=== PATIENT | female | born 1970 | race Caucasian/White ===

== ENCOUNTER 2016-08-09 02:28 | Inpatient (IN) | payer OTHER ==
--- NOTE | ~2016-08-09 | HP ---
History And Physical [facility] [id number] [place]. [address] NAME: NEELIMA ROSAS : 72 STATUS : ADM IN PAT#: [id number] AGE: 45 ADM/REG DATE : 08/09/16 MR#: [id number] REPORT SERV DATE: 08/09/16 DICTATED BY: HEMA GUILLEN DATE: 08/09/16 REPORT STATUS : Draft TRANSCRIBED BY: MODL DATE: 08/09/16 DATE OF ADMISSION: 08/09/2016 CHIEF COMPLAINT: Chest pain, shortness of breath, lower extremity edema, and tachycardia. HISTORY OF PRESENT ILLNESS: Ms. Rosas is a 45-year-old female with a history of morbid obesity, hypertension, chronic pain, on chronic narcotics, hypothyroidism, as well as iron deficiency anemia, who presents with complaints of chest pain, shortness of breath, high heart rate, lower extremity edema, low blood counts, as well as back and leg pain. The patient states that she has had a one-to two-day history of substernal chest pain without any radiation to left arm, neck, shoulder, or back. It is associated with some shortness of breath, as well as high heart rates. It has now somewhat improved, but still present. It is worse with exertion. The patient also reports shortness of breath primarily with exertion. Denies any orthopnea, cough, sputum production, or wheezing, but does report some intermittent low-grade fevers over the past week. She has also reported some worsening lower extremity swelling. Also reports some intermittent low-grade fevers, 99 to 100 degrees Fahrenheit over the past week. The patient states that in the past, she has required multiple IV iron infusions as well as blood transfusions, but has not required any since 2010 and since then, her blood counts have been fairly stable up until March of this year when they noted with drop down hemoglobin around 11. She states that she gets tachycardic, short of breath, and chest pain every time her blood counts drop. She denies any melena, hematochezia, hemoptysis, or hematemesis. The patient has recently undergone left foot surgery and has a chronic nonhealing wound which is being managed by [facility]. The patient also reports some headaches, worsening over lower back pain, as well as some muscle spasms. Initial evaluation in the emergency department, hemoglobin 8.4, hematocrit of 29.1 with MCV of 72. EKG was sinus tachycardia with no evidence of any acute ischemia or infarction. Chest x-ray was clear. CT of the chest was limited, but with no evidence of any central PE as well as no evidence of any pneumonia or pleural effusions. The patient was subsequently admitted to the Hospitalist Service for further evaluation and management. REVIEW OF SYSTEMS: Comprehensive review of system otherwise negative unless listed in the history of present illness. History And Physical [address] [address] NAME: NEELIMA ROSAS : 72 STATUS : ADM IN PAT#: [id number] AGE: 45 ADM/REG DATE : 08/09/16 MR#: [id number] REPORT SERV DATE: 08/09/16 DICTATED BY: HEMA GUILLEN DATE: 08/09/16 REPORT STATUS : Draft TRANSCRIBED BY: BANDAR DATE: 08/09/16 PAST MEDICAL HISTORY: 1. Morbid obesity. 2. Hypertension. 3. Hiatal hernia. 4. Obstructive sleep apnea, noncompliant on CPAP therapy. 5. Osteoarthritis. 6. Chronic pain, on chronic narcotics. 7. Hypothyroidism. 8. History of iron deficiency anemia, requiring multiple IV iron infusions and blood transfusion. 9. History of pancytopenia. 10.History of pernicious anemia. 11.History of gastritis. 12.History of upper GI bleed. SURGICAL HISTORY: 1. Appendectomy. 2. Cholecystectomy. 3. Tonsillectomy and adenoidectomy. 4. Tubal ligation. 5. Bilateral foot surgeries. 6. Right knee surgery. ALLERGIES: PENICILLIN, SULFA DRUGS, LATEX AND ADHESIVE TAPE. HOME MEDICATIONS: Pending at the time of dictation. SOCIAL HISTORY: Denies any tobacco or illicits. Occasional alcohol use. She is on disability. FAMILY MEDICAL HISTORY: Mother with hypertension. Father with diabetes, heart disease, and hypertension. Siblings with hypertension. LABS AND IMAGIN. White count is 4.2, hemoglobin 8.4, hematocrit is 29.1 and platelets are 119. MCV 72. INR 1.1. 2. Sodium is 139, potassium 3.2, chloride 104, carbon dioxide 31, BUN 6, creatinine 0.82, glucose is 131, calcium is 8.7. 3. Troponin less than 0.02. 4. CTA of the chest: Limited study due to the patient's body habitus, but no evidence of any central pulmonary arterial defects, shows some mild cardiomegaly as well as hepatosplenomegaly, and a large retrocardiac hiatal hernia. 5. Chest x-ray per review shows cardiomegaly, but otherwise, no acute cardiopulmonary abnormalities. Her EKG per my review shows sinus tachycardia, heart rate of 115 with no evidence of any acute ischemia or infarction. She does have a classic S1Q3T3 pattern concerning for possible RV strain. History And Physical [address] [address] NAME: NEELIMA ROSAS : 72 STATUS : ADM IN [facility]#: [id number] AGE: 45 ADM/REG DATE : 08/09/16 MR#: [id number] REPORT SERV DATE: 08/09/16 DICTATED BY: HEMA GUILLEN DATE: 08/09/16 REPORT STATUS : Draft TRANSCRIBED BY: BANDAR DATE: 08/09/16 PHYSICAL EXAMINATION: VITAL SIGNS: Temperature is 98.0 degrees Fahrenheit, pulse is 121, respirations 18, saturating 96% on room air. Blood pressure 185/95; on recheck, blood pressure is now 145/80; pulse of 99. GENERAL: The patient is awake, alert, in no acute distress. Resting comfortably. She is a morbidly obese female. Family is at bedside. HEENT: Atraumatic and normocephalic. Moist mucous membranes. Pupils are equal, round, and reactive to light and accommodation. Extraocular movements intact. No scleral icterus. NECK: No jugular venous distention or carotid bruits. CARDIAC: Tachycardic rate, regular rhythm. No murmurs, rubs, or gallops. Normal S1, S2. LUNGS: Clear to auscultation bilaterally except for some decreased breath sounds in the bases. ABDOMEN: Obese, soft, nontender, nondistended with good bowel sounds. No rebound, guarding, or rigidity. EXTREMITIES: Warm and well perfused with no cyanosis or clubbing. She does have a trace to 1+ lower extremity edema. There is an approximately 1 cm in diameter superficial ulceration of the medial aspect of her left forefoot which base is clean, dry, and intact, appears to be well healing. SKIN: Warm and dry except for noted above. PSYCH: Affect appropriate. NEURO: Alert and oriented x3. Cranial nerves 2 through 12 grossly intact. Speech is normal. Gait not assessed. ASSESSMENT: Ms. Rosas is a 45-year-old female who presents with multiple complaints including chest pain, shortness of breath, low blood counts, and tachycardia. PROBLEM LIST: 1. Chest pain. 2. Shortness of breath and dyspnea on exertion. 3. Tachycardia. 4. Rjduh-uh-gcflzte anemia. 5. Lower extremity edema. 6. Fevers. 7. Hypokalemia. 8. Morbid obesity. 9. Chronic pain, on chronic narcotics. 10.History of pernicious anemia and iron deficiency anemia. 11.History of hypothyroidism. PLAN: 1. Chest pain. EKG and cardiac enzymes are unremarkable. CT of the chest was negative for a large central PE. We will continue to trend out cardiac enzymes as well as EKG. Given the patient's reported shortness of breath, as well as chest pain and persistent tachycardia, we will obtain a V/Q scan to rule out PE given the limited nature of the CTA of the chest. 2. Shortness of breath, dyspnea on exertion. Chest x-ray and CTA of the chest are clear History And Physical [address] [address] NAME: NEELIMA ROSAS : 72 STATUS : ADM IN PAT#: [id number] AGE: 45 ADM/REG DATE : 08/09/16 MR#: [id number] REPORT SERV DATE: 08/09/16 DICTATED BY: HEMA GUILLEN DATE: 08/09/16 REPORT STATUS : Draft TRANSCRIBED BY: MODL DATE: 08/09/16 and negative for pneumonia, volume overload, effusion, or central PE. I suspect some of this might be due to debility as well as dtrwh-gl-kbpeblk anemia. Checking BNP level as well as echocardiogram. 3. Tachycardia. CTA of the chest was negative for large or central PE, but we will check a V/Q scan to definitively rule out PE. Also, followup BNP level, echocardiogram, continue to trend out cardiac enzymes. Given tachycardia, also concern for possible underlying infection. She is afebrile, although does have some mild leukopenia. We will check a procalcitonin level, lactate, blood cultures, as well as checking urinalysis for underlying urinary tract infection. 4. Lower extremity edema. Checking BNP level, hepatic function panel, check protein status, as well as lower extremity Dopplers to rule out DVT. 5. Gxywj-jy-deowzgn anemia. Suspect some occult blood loss given her worsening MCV as well as increasing RDW. Checking occult blood as well as iron studies, folate, and B12. We will transfuse for hemoglobin less than 7. 6. Hypokalemia, repleting per protocol. 7. Fevers. The patient is afebrile here with mild leukopenia. Please refer to the above plan for workup of possible infectious etiology. 8. DVT prophylaxis. Lovenox subcu. CODE STATUS: The patient wished to be full code. JCB/MODL Hema Guillen MD / [id number] CC: Elpidio Eaton Jr, MD Michael Dant, M.D.
--- NOTE | ~2016-08-09 | DS ---
Discharge Summary [facility] [address] [place]. [address] NAME: NEELIMA ROSAS : 72 STATUS : DIS IN PAT#: [id number] AGE: 45 ADM/REG DATE : 08/09/16 MR#: [id number] REPORT SERV DATE: 08/15/16 DICTATED BY: ANN MARQUES DATE: 08/14/16 REPORT STATUS : Draft TRANSCRIBED BY: MODL DATE: 08/14/16 ADMISSION DATE: 08/09/2016 DISCHARGE DATE: 08/14/2016 DISCHARGE DIAGNOSES: 1. Chronic pancytopenia with iron-deficiency anemia with intolerance of oral iron therapy, status post one unit of blood transfusion and status post IV iron infusion. 2. BMI . 3. Recent right foot surgery. 4. Chest pain. On presentation on admission, had a negative workup of PE and coronary artery disease. HISTORY OF PRESENT ILLNESS: This is a 45-year-old female patient, who came to the hospital with complaining of chest pain and was found to be tachycardic. Please see dictated H and P. HOSPITAL COURSE: She was admitted to hospital with tachycardia, short of breath. Had evaluation for the PE and also had evaluation for ischemia of coronary artery disease. She had a negative CTA of the chest. The echocardiogram showed ejection fraction of 65% without significant valvular heart disease. V/Q scan was also negative for PE and ultrasound of the leg was negative for DVT. Her procalcitonin level was less than 0.05. Her albumin level was 2.9 interestingly. The patient had a two-day procedure of the nuclear cardiac stress test due to the body habitus. Nuclear stress test did show some soft tissue attenuation more likely related with her body status. After one unit of blood was given, the patient is not having any symptoms and even her symptoms are subsided even before the blood transfusion. She does have a history of multiple transfusion and followed by Dr. Faraz Bailey at [facility] for a while in the past. Her H and H have been noted to be slightly lower than normal in the past. Simply for symptomatic treatment, she received 1 unit of packed RBC. For the whole time of the night taking care of this patient, she has been very stable. Did not have any other symptomatic anemia issues or any evidence of bleeding either. After the cardiac stress test was done and with a negative result, the patient was decided to be discharged on 08/13/2016. However, she felt like she does need more blood transfusion for her H and H was 8.5 and hematocrit was 29.1. However, she does not have any indication for transfusion therapy. She stayed one more night. Dr. Faraz Bailey visited her and he emphasized that she does not need any blood at this moment and we already set up the outpatient followup with him at [facility] and he emphasized that outpatient followup will be more important for her and she agreed to go home today. DISCHARGE MEDICATIONS: 1. Continuing atenolol 25 mg once a day. 2. Hyzaar 100/12.5 mg once a day. 3. Percocet 10 four times a day. 4. Protonix 40 mg twice a day. Discharge Summary [address] [address] NAME: NEELIMA ROSAS : 72 STATUS : DIS IN PAT#: [id number] AGE: 45 ADM/REG DATE : 08/09/16 MR#: [id number] REPORT SERV DATE: 08/15/16 DICTATED BY: ANN MARQUES DATE: 08/14/16 REPORT STATUS : Draft TRANSCRIBED BY: BANDAR DATE: 08/14/16 5. Lyrica 50 mg three times a day. 6. Vitamin D once a day. 7. Zanaflex 4 mg three times a day. 8. I would recommend potassium 40 mEq once a day. TIME SPENT: More than 30 minutes in discharge coordination. DICTATED BY: Ann Marques M.D. EKRon/BANDAR Ann Marques M.D. / [id number] CC: Urvashi Calabrese M.D.
[~2016-08-09 02:28] MED LIST: ATEN25 PO; BP PILL PO; CLEOCIN300 MG PO; COZ50 PO; DELESTROGEN40 MG/ML IM; DENIES HOME MEDS; FLEX PO; HYZAAR1 TAB PO; IRON325 MG PO; LEVOTHROID25 MCG PO; LEVOTHYROXIN50 MCG PO; LORTAB10 PO; MULTIVIT/MIN PO; NEXIUM40 PO; NO; NORCO1 TAB PO; PHENADOZ25 MG RE; PR25 PO; PRIN10 PO; PROTONIX PO; SUCR PO
[2016-08-09 03:19] LABS: BASOPHILS 0.2 %; BASOPHILS ABSOLUTE 0.01 10/3/uL (0.0-0.16); EOSINOPHILS 1.9 %; EOSINOPHILS ABSOLUTE 0.08 10/3/uL (0.0-0.53); ER CBC TAT 0 Hrs 07 Mins; LYMPHOCYTES 23.7 %; LYMPHOCYTES ABSOLUTE 0.99 10/3/uL (0.67-4.30); MEAN PLATELET VOLUME 10.8 fL (9.2-13.0); MONOCYTES ABSOLUTE 0.25 10/3/uL (0.21-1.20); NEUTROPHILS 68.2 %; NEUTROPHILS ABSOLUTE 2.84 10/3/uL (2.02-8.40); PLATELET COUNT 119 10/3/uL (150-400); RBC DISTRIBUTION WIDTH 17.3 % (12.0-16.0); RED CELL COUNT 4.03 10/6/uL (4.0-5.6); WHITE BLOOD CELLS 4.2 10/3/uL (4.5-10.5)
[2016-08-09 03:20] LABS: HEMATOCRIT 29.1 % (36.0-48.0); HEMOGLOBIN 8.4 g/dL (12.0-16.0); MANUAL DIFF NO %; MEAN CORPUS HGB CONC 28.9 g/dL (32.0-36.0); MEAN CORPUSCULAR HEMOGLOB 20.8 pg (26.0-34.0); MEAN CORPUSCULAR VOLUME 72.2 fL (80-100)
[2016-08-09 03:25] LABS: INTERNATIONAL NORMAL RATI 1.1 UNITS (-); PARTIAL THROMBO TIME 30.5 SEC (22.5-37.2); PROTIME (NOT ORD) 13.6 SEC (12.0-14.5)
[2016-08-09 03:32] LABS: ANISOCYTOSIS 1+ (5-10/OIF) (0-5/OIF); PLATELET ESTIMATE SLT DEC (ADEQUATE)
[2016-08-09 03:33] LABS: BUN (BLOOD UREA NITROGEN) 6 MG/DL (6-23); CALCIUM, SERUM 8.7 MG/DL (8.5-10.4); CHEST PAIN PROFILE TAT 0 Hrs 21 Mins; CHLORIDE, SERUM 104 MMOL/L (96-112); CO2 (CARBON DIOXIDE) 31 MMOL/L (24-34); CREATININE 0.82 MG/DL (0.55-1.02); GFR AFRICAN AMERICAN 101 ML/MIN (>=60); GFR NON AFRICAN AMERICAN 87 ML/MIN (>=60); POLYCHROMASIA 1+ (2-5/OIF) (0-1/OIF); POTASSIUM, SERUM 3.2 MMOL/L (3.5-5.3); SODIUM, SERUM 139 MMOL/L (135-148); TROPONIN I <0.02 NG/ML (<0.05)
[2016-08-09 03:34] LABS: GLUCOSE, SERUM 171 MG/DL (60-99)
[2016-08-09] MEDS ORDERED: ZANAFLEX 4 MG TA4 MG PO (09:11)
[2016-08-09] MEDS ORDERED: LYRICA50 PO (09:11)
[2016-08-09] MEDS ORDERED: D 5000 PO (09:11)
[2016-08-09] MEDS ORDERED: PERCOCET 10/3251 TAB PO ×2 (09:13→15:09)
[2016-08-09 10:46] LABS: ALBUMIN 3.1 G/DL (3.5-5.0); ALKALINE PHOSPHATASE 94 U/L (45-117); BUN (BLOOD UREA NITROGEN) 7 MG/DL (6-23); CALCIUM, SERUM 8.6 MG/DL (8.5-10.4); CHLORIDE, SERUM 106 MMOL/L (96-112); CK-MB 0.7 NG/ML; CO2 (CARBON DIOXIDE) 31 MMOL/L (24-34); CPK 54 U/L (0-200); CREATININE 0.72 MG/DL (0.55-1.02); DIRECT BILIRUBIN < 0.1 MG/DL (0.0-0.4); FERRITIN 18 NG/ML (8-252); GFR AFRICAN AMERICAN 118 ML/MIN (>=60); GFR NON AFRICAN AMERICAN 102 ML/MIN (>=60); GLUCOSE, SERUM 93 MG/DL (60-99); INDIRECT BILIRUBIN(NOT ORDER) 0.2 MG/DL (0.1-0.9); IRON BINDING CAPACITY 295 MCG/DL (225-410); IRON, SERUM 17 MCG/DL (35-150); PHOSPHORUS, SERUM 3.7 MG/DL (2.5-4.5); POTASSIUM, SERUM 3.3 MMOL/L (3.5-5.3); SGOT(AST) 27 U/L (5-40); SGPT(ALT) 33 U/L (5-65); SODIUM, SERUM 142 MMOL/L (135-148); TOTAL BILIRUBIN 0.3 MG/DL (0-1.2); TOTAL PROTEIN 6.6 G/DL (6.0-8.5); TROPONIN I <0.02 NG/ML (<0.05)
[2016-08-09 10:47] LABS: FOLATE 6.4 NG/ML (>5.2)
[2016-08-09] MEDS ORDERED: LEVOTHYROXIN50 MCG PO (15:08)
[2016-08-09] MEDS ORDERED: ATEN25 PO (15:08)
[2016-08-09] MEDS ORDERED: PROTONIX PO (15:09)
[2016-08-09] MEDS ORDERED: BIOCLEANSE PO (15:09)
[2016-08-09] MEDS ORDERED: PROBIOTIC PO (15:09)
[2016-08-09] MEDS ORDERED: [UNRECOGNIZED DRUG - REMARK] PO (15:10)
[2016-08-09] MEDS ORDERED: HYZAAR1 TAB PO (15:11)
[2016-08-09 15:40] LABS: CPK 57 U/L (0-200); TROPONIN I <0.02 NG/ML (<0.05)
[2016-08-09 15:41] LABS: CK-MB 0.8 NG/ML
[2016-08-10 05:46] LABS: BASOPHILS 0.3 %; BASOPHILS ABSOLUTE 0.01 10/3/uL (0.0-0.16); EOSINOPHILS 4.8 %; EOSINOPHILS ABSOLUTE 0.19 10/3/uL (0.0-0.53); HEMATOCRIT 26.3 % (36.0-48.0); HEMOGLOBIN 7.5 g/dL (12.0-16.0); IMMATURE GRANULOCYTES 0.3 %; IMMATURE GRANULOCYTES ABSOLUTE 0.01 10/3/uL (0.0-0.11); LYMPHOCYTES 29.7 %; LYMPHOCYTES ABSOLUTE 1.18 10/3/uL (0.67-4.30); MEAN CORPUS HGB CONC 28.5 g/dL (32.0-36.0); MEAN CORPUSCULAR HEMOGLOB 20.9 pg (26.0-34.0); MEAN CORPUSCULAR VOLUME 73.3 fL (80-100); MEAN PLATELET VOLUME 11.1 fL (9.2-13.0); MONOCYTES 7.6 %; NEUTROPHILS 57.3 %; NEUTROPHILS ABSOLUTE 2.28 10/3/uL (2.02-8.40); PLATELET COUNT 107 10/3/uL (150-400); RBC DISTRIBUTION WIDTH 17.4 % (12.0-16.0); RED CELL COUNT 3.59 10/6/uL (4.0-5.6)
[2016-08-10 05:49] LABS: MANUAL DIFF NO %
[2016-08-10 06:14] LABS: ANISOCYTOSIS 1+ (5-10/OIF) (0-5/OIF); MICROCYTES 1+ (5-10/OIF) (0-5/OIF); PLATELET ESTIMATE SLT DEC (ADEQUATE)
[2016-08-10 06:15] LABS: POLYCHROMASIA 1+ (2-5/OIF) (0-1/OIF)
[2016-08-10 06:16] LABS: OVALOCYTES 1+ (3-10/OIF) (0-2/OIF); POIKILOCYTOSIS 1+ (5-10/OIF) (0-5/OIF)
[2016-08-11 05:34] LABS: BASOPHILS 0.2 %; BASOPHILS ABSOLUTE 0.01 10/3/uL (0.0-0.16); EOSINOPHILS 4.6 %; EOSINOPHILS ABSOLUTE 0.19 10/3/uL (0.0-0.53); HEMATOCRIT 25.8 % (36.0-48.0); HEMOGLOBIN 7.5 g/dL (12.0-16.0); IMMATURE GRANULOCYTES 0.2 %; IMMATURE GRANULOCYTES ABSOLUTE 0.01 10/3/uL (0.0-0.11); LYMPHOCYTES 24.9 %; LYMPHOCYTES ABSOLUTE 1.04 10/3/uL (0.67-4.30); MEAN CORPUS HGB CONC 29.1 g/dL (32.0-36.0); MEAN CORPUSCULAR HEMOGLOB 21.1 pg (26.0-34.0); MEAN CORPUSCULAR VOLUME 72.7 fL (80-100); MONOCYTES 8.2 %; MONOCYTES ABSOLUTE 0.34 10/3/uL (0.21-1.20); NEUTROPHILS 61.9 %; NEUTROPHILS ABSOLUTE 2.58 10/3/uL (2.02-8.40); PLATELET COUNT 107 10/3/uL (150-400); RBC DISTRIBUTION WIDTH 17.7 % (12.0-16.0); RED CELL COUNT 3.55 10/6/uL (4.0-5.6); WHITE BLOOD CELLS 4.2 10/3/uL (4.5-10.5)
[2016-08-11 05:39] LABS: MANUAL DIFF NO %
[2016-08-11 05:51] LABS: A/G RATIO 0.8 (0.7-1.9); ALBUMIN 2.9 G/DL (3.5-5.0); ALKALINE PHOSPHATASE 88 U/L (45-117); BUN (BLOOD UREA NITROGEN) 8 MG/DL (6-23); CALCIUM, SERUM 8.8 MG/DL (8.5-10.4); CHLORIDE, SERUM 103 MMOL/L (96-112); CO2 (CARBON DIOXIDE) 29 MMOL/L (24-34); CREATININE 0.78 MG/DL (0.55-1.02); GFR AFRICAN AMERICAN 107 ML/MIN (>=60); GFR NON AFRICAN AMERICAN 92 ML/MIN (>=60); GLOBULIN 3.7 G/DL (2.5-4.1); GLUCOSE, SERUM 110 MG/DL (60-99); POTASSIUM, SERUM 3.7 MMOL/L (3.5-5.3); SGOT(AST) 31 U/L (5-40); SGPT(ALT) 40 U/L (5-65); SODIUM, SERUM 136 MMOL/L (135-148); TOTAL BILIRUBIN 0.3 MG/DL (0-1.2); TOTAL PROTEIN 6.6 G/DL (6.0-8.5)
[2016-08-11 06:05] LABS: ANISOCYTOSIS 1+ (5-10/OIF) (0-5/OIF); HYPOCHROMIA 1+ (3-10/OIF) (0-2/OIF); PLATELET ESTIMATE SLT DEC (ADEQUATE)
[2016-08-11 06:06] LABS: POLYCHROMASIA 1+ (2-5/OIF) (0-1/OIF)
[2016-08-11 06:18] LABS: T PROTEIN (ELECT)(NOT OR 6.1 G/DL (6.0-8.5)
[2016-08-11 10:51] LABS: A/G 1.27 RATIO (0.9-2.10); ALBUMIN (ELECTRO) 3.42 GM/DL (3.2-5.5); ALPHA 1 (ELECTRO) 0.23 GM/DL (0.1-0.4); ALPHA 1 RELAT % (NOT ORD) 3.8 % (1.0-4.0); ALPHA 2 (ELECTRO) 0.65 GM/DL (0.5-1.10); ALPHA 2 RELAT % 10.7 % (4.5-26.0); BETA GLOBULIN (SPE) 0.69 GM/DL (0.60-1.30); BETA RELATIVE % 11.3 % (9.0-22.0); GAMMA GLOBULIN (SPE) 1.11 G/DL (0.70-1.60); GAMMA RELAT % 18.2 % (6.0-22.0)
[2016-08-11 11:40] LABS: RETICULOCYTE COUNT 2.1 % (0.5-2.5)
[2016-08-12 05:44] LABS: BASOPHILS 0.2 %; BASOPHILS ABSOLUTE 0.01 10/3/uL (0.0-0.16); EOSINOPHILS 3.4 %; EOSINOPHILS ABSOLUTE 0.15 10/3/uL (0.0-0.53); HEMATOCRIT 28.4 % (36.0-48.0); HEMOGLOBIN 8.4 g/dL (12.0-16.0); IMMATURE GRANULOCYTES 0.7 %; IMMATURE GRANULOCYTES ABSOLUTE 0.03 10/3/uL (0.0-0.11); LYMPHOCYTES 24.2 %; LYMPHOCYTES ABSOLUTE 1.08 10/3/uL (0.67-4.30); MANUAL DIFF NO %; MEAN CORPUS HGB CONC 29.6 g/dL (32.0-36.0); MEAN CORPUSCULAR HEMOGLOB 21.7 pg (26.0-34.0); MEAN CORPUSCULAR VOLUME 73.4 fL (80-100); MONOCYTES 9.2 %; MONOCYTES ABSOLUTE 0.41 10/3/uL (0.21-1.20); NEUTROPHILS 62.3 %; NEUTROPHILS ABSOLUTE 2.78 10/3/uL (2.02-8.40); PLATELET COUNT 122 10/3/uL (150-400); RBC DISTRIBUTION WIDTH 18.1 % (12.0-16.0); RED CELL COUNT 3.87 10/6/uL (4.0-5.6); WHITE BLOOD CELLS 4.5 10/3/uL (4.5-10.5)
[2016-08-12 05:58] LABS: BUN (BLOOD UREA NITROGEN) 8 MG/DL (6-23); CALCIUM, SERUM 9.1 MG/DL (8.5-10.4); CHLORIDE, SERUM 101 MMOL/L (96-112); CREATININE 0.77 MG/DL (0.55-1.02); GFR AFRICAN AMERICAN 109 ML/MIN (>=60); GFR NON AFRICAN AMERICAN 94 ML/MIN (>=60); GLUCOSE, SERUM 99 MG/DL (60-99); POTASSIUM, SERUM 3.8 MMOL/L (3.5-5.3); SODIUM, SERUM 135 MMOL/L (135-148)
[2016-08-12 06:01] LABS: CO2 (CARBON DIOXIDE) 34 MMOL/L (24-34)
[2016-08-12 06:08] LABS: ANISOCYTOSIS 1+ (5-10/OIF) (0-5/OIF); ELLIPTOCYTES 1+ (3-10/OIF) (0-2/OIF); MICROCYTES 1+ (5-10/OIF) (0-5/OIF); PLATELET ESTIMATE SLT DEC (ADEQUATE)
[2016-08-13 05:02] LABS: BASOPHILS 0.2 %; BASOPHILS ABSOLUTE 0.01 10/3/uL (0.0-0.16); EOSINOPHILS 2.7 %; EOSINOPHILS ABSOLUTE 0.11 10/3/uL (0.0-0.53); HEMATOCRIT 29.1 % (36.0-48.0); HEMOGLOBIN 8.5 g/dL (12.0-16.0); IMMATURE GRANULOCYTES ABSOLUTE 0.04 10/3/uL (0.0-0.11); LYMPHOCYTES 24.9 %; MEAN CORPUS HGB CONC 29.2 g/dL (32.0-36.0); MEAN CORPUSCULAR HEMOGLOB 21.9 pg (26.0-34.0); MEAN CORPUSCULAR VOLUME 74.8 fL (80-100); MONOCYTES 10.2 %; MONOCYTES ABSOLUTE 0.41 10/3/uL (0.21-1.20); NEUTROPHILS ABSOLUTE 2.44 10/3/uL (2.02-8.40); PLATELET COUNT 112 10/3/uL (150-400); RBC DISTRIBUTION WIDTH 18.4 % (12.0-16.0); RED CELL COUNT 3.89 10/6/uL (4.0-5.6)
[2016-08-13 05:04] LABS: MANUAL DIFF NO %
[2016-08-13 05:27] LABS: ANISOCYTOSIS 1+ (5-10/OIF) (0-5/OIF); PLATELET ESTIMATE SLT DEC (ADEQUATE)
[2016-08-13 05:28] LABS: MICROCYTES 1+ (5-10/OIF) (0-5/OIF); RBC MORPHOLOGY ABN (NORMAL)
[2016-08-14] MEDS ORDERED: KLOR-CON M2020 MEQ PO (10:11)
== END 2016-08-14 12:22 | disposition home or self-care (01) | DRG 812 ==
LOC: ER 02:28 → 5NO 07:21
PROVIDERS: Internal Medicine; Nurse Practitioner
PROC: 30233N1 Transfusion of Nonautologous Red Blood Cells into Peripheral Vein, Percutaneous Approach (ICD-10-PCS; principal; 2016-08-11)
DX: D50.9 Iron deficiency anemia, unspecified (principal); D61.818 Other pancytopenia; Z68.43 Body mass index [BMI] 50.0-59.9, adult; R07.9 Chest pain, unspecified; E66.01 Morbid (severe) obesity due to excess calories; R06.02 Shortness of breath; E87.6 Hypokalemia; G89.4 Chronic pain syndrome; Z79.891 Long term (current) use of opiate analgesic
CPT/HCPCS: 36415; 71010; 71275; 78452; 78582; 80048; 80053; 80076; 82550; 82553; 82607; 82728; 82746; 83540; 83550; 83605; 83735; 83880; 84100; 84145; 84155; 84165; 84439; 84443; 84484; 85025; 85045; 85610; 85730; 86850; 86900; 86901; 86920; 87040; 93005; 93017; 93970; 96374; 96375; 99285; A9270-GY; A9502; A9540; A9567; C8929; J0153; J1200; J2405; J2916; P9016; Q9957; Q9967